=== PATIENT | male | born 1955 | race Caucasian/White ===

== ENCOUNTER → 2017-12-01 | Outpatient (CLI) | payer OTHER ==
[~2017-12-01] MED LIST: IOPAMIDOL 370 MG/ML 200 ML INFUS..BTL INJ ONE; SODIUM CHLORIDE 0.9% 50ML 50 ML ONE
[2017-12-01 08:06] LABS: BLOOD UREA NITROGEN 17 mg/dL (7-26); BUN/CREATININE RATIO 21 (6-25); CREATININE, SERUM 0.82 mg/dL (0.72-1.25); EST GLOMERULAR FILTRATION RATE > 60 ML/MIN (60-)
--- NOTE | 2017-12-01 11:38 | Diagnostic Imaging Report ---
EXAM: CT Abdomen and Pelvis WITHOUT and WITH contrast INDICATION: \[id number] \S\[id number] \S\RENAL MASS / GROSS HEMATURIA COMPARISON: None. TECHNIQUE: Abdomen and pelvis were scanned utilizing a multidetector helical scanner from the lung base to the pubic symphysis before and after administration of IV contrast. Coronal and sagittal reformations were obtained. Renal mass protocol was performed. Scan was performed pre-, nephrographic, and 4 minute delayed phase. IV CONTRAST: 100 mL of Isovue-370 ORAL CONTRAST: Water COMPLICATIONS: None RADIATION DOSE: Total DLP: 1966.28 mGy*cm Estimated effective dose: (DLP x 0.015 x size factor) mSv CTDIvol has been reviewed. It is below the limits set by the Radiation Protocol Committee (RPC). FINDINGS: LINES and TUBES: None. LOWER THORAX: 3 mm nonspecific subpleural right middle lobe nodule (series 3, image 1). Partially imaged coronary artery calcification. HEPATOBILIARY: Hepatic steatosis. 9 mm right hepatic lobe hypodensities too small to characterize (series 4, image 83). No biliary ductal dilation. GALLBLADDER: No radio-opaque stones or sludge. No wall thickening. SPLEEN: No splenomegaly. PANCREAS: No focal masses or ductal dilatation. ADRENALS: No adrenal nodules KIDNEYS/URETERS: Kidneys enhance symmetrically. No hydronephrosis. No renal mass. 3.3 cm left midpole partially exophytic cyst without evidence of enhancement. 4 mm right inferior pole calculus. There is also a punctate right midpole calculus. No left renal stone. Collecting System: Patent Renal Artery: Patent Renal Vein: Patent IVC: Patent GI TRACT: No abnormal distention, wall thickening, or evidence of bowel obstruction. Appendix is normal. PELVIC ORGANS/BLADDER: Filling defects within the posterior bladder wall on the left side measuring 2 x 2.4 cm (series 801, image 63) and midline measuring 1.9 x 1.5 cm (series 7, image 141). Prostate gland is enlarged measuring 5.4 cm in transverse diameter. LYMPH NODES: No lymphadenopathy. VESSELS: There is mild atherosclerotic disease in the aorta and major arterial branches. PERITONEUM / RETROPERITONEUM: No free air or fluid. BONES: Unremarkable. SOFT TISSUES: Small fat-containing left inguinal hernia. IMPRESSION: 1. No renal mass. 3.3 cm simple left renal midpole cyst. 2. Subcentimeter nonobstructive right renal calculi. 3. Filling defects within the posterior bladder, concerning for malignancy. Recommend correlation with cystoscopy. Signed by: Dr. Devyn Moreira MD on 12/01/2017 11:34 AM
== END ==
LOC: CT 07:25
PROVIDERS: ATTEND Urology
DX: N28.1 Cyst of kidney, acquired (principal); R31.0 Gross hematuria
CPT/HCPCS: 36415; 74178; 82565; 84520; Q9967

== ENCOUNTER → 2017-12-18 | Day surgery (SDC) | payer OTHER ==
[~2017-12-18] MED LIST changes: +ALLOPURINOL100 MG PO; +BELLADONNA/OPIUM 60 MG SUPP PR ONE; +CEFAZOLIN SOD 2 GM/D5W 50ML 50 ML IV ONE; +DEXAMETHASONE SOD PHOS INJ 4 MG/ML VIAL ONE; +FENTANYL CITRATE/PF 100MCG/2 ML INJ ONE; +GLYCOPYRROLATE INJ 1MG/ 5 ML SYR ONE; -IOPAMIDOL 370 MG/ML 200 ML INFUS..BTL INJ ONE; +IOPAMIDOL 610MG/1ML 300 MG/ML VIAL IV ONE; +LIDOCAINE HCL 2% LOCAL INJ 5 ML SDV VIAL INJ ONE; +LISINOPRIL2.5 MG PO; +MIDAZOLAM HCL 2 MG/2 ML VIAL ONE; +NEOSTIGMINE 5 MG/5ML SYR ONE; +ONDANSETRON HCL INJ 2 MG/ML VIAL ONE; +PROPOFOL IV EMULSION 10 MG/ML 20 ML VIAL ONE; +ROCURONIUM BROMIDE 10 MG/ML 5ML VIAL ONE; +SEVOFLURANE INHAL SOLN 250 ML PEN BTL ONE; -SODIUM CHLORIDE 0.9% 50ML 50 ML ONE
--- OUTSIDE RECORDS SUMMARY | 2017-12-18 10:27 | XMS REPORT ---
[facility] Address Unknown Phone Unavailable Care Team Providers Care Ply Splicer Name Role Phone MYESHA CANTU Unavailable Unavailable Problems This patient has no known problems. Allergies, Adverse Reactions, Alerts This patient has no known allergies or adverse reactions. Medications This patient has no known medications. Results Test Description Test Time Test Comments Text Results Atomic Results Result Comments CT ABDOMEN/PELVIS WOW [place] [address] Patient Name: TIFFANY SILVESTRE II MR #: [id number] : 1955 Age/Sex: 62/M Req #: [id number] Adm Physician: Ordered by: MYESHA CANTU MD Report #: [id number] Location: CT Room/Bed: Procedure: [id number] CT/CT ABDOMEN/PELVIS WOW Exam Date: 12/01/17 Exam Time: 0817 REPORT STATUS: Signed EXAM: CT Abdomen and Pelvis WITHOUT and WITH contrast INDICATION: COMPARISON : None. TECHNIQUE: Abdomen and pelvis were scanned utilizing a multidetector helical scanner from the lung base to the pubic symphysis before and after administration of IV contrast. Coronal and sagittal reformations were obtained. Renal mass protocol was performed. Scan was performed pre-, nephrographic, and 4 minute delayed phase. IV CONTRAST: 100 mL of Isovue-370 ORAL CONTRAST: Water COMPLICATIONS: None RADIATION DOSE: Total DLP: 1966.28 mGy*cm Estimated effective dose: (DLP x 0.015 x size factor) mSv CTDIvol has been reviewed. It is below the limits set by the Radiation Protocol Committee (RPC). FINDINGS: LINES and TUBES : None. LOWER THORAX: 3 mm nonspecific subpleural right middle lobe nodule (series 3, image 1). Partially imaged coronary artery calcification. HEPATOBILIARY: Hepatic steatosis. 9 mm right hepatic lobe hypodensities too small to characterize (series 4, image 83). No biliary ductal dilation. GALLBLADDER: No radio-opaque stones or sludge. No wall thickening. SPLEEN: No splenomegaly. PANCREAS: No focal masses or ductal dilatation. ADRENALS: No adrenal nodules KIDNEYS/URETERS: Kidneys enhance symmetrically. No hydronephrosis. No renal mass. 3.3 cm left midpole partially exophytic cyst without evidence of enhancement. 4 mm right inferior pole calculus. There is also a punctate right midpole calculus. No left renal stone. Collecting System: Patent Renal Artery: Patent Renal Vein: Patent IVC: Patent GI TRACT: No abnormal distention, wall thickening, or evidence of bowel obstruction. Appendix is normal. PELVIC ORGANS/BLADDER: Filling defects within the posterior bladder wall on the left side measuring 2 x 2.4 cm (series 801, image 63) and midline measuring 1.9 x 1.5 cm (series 7, image 141). Prostate gland is enlarged measuring 5.4 cm in transverse diameter. LYMPH NODES: No lymphadenopathy. VESSELS: There is mild atherosclerotic disease in the aorta and major arterial branches. PERITONEUM / RETROPERITONEUM: No free air or fluid. BONES: Unremarkable. SOFT TISSUES: Small fat-containing left inguinal hernia. IMPRESSION: 1. No renal mass. 3.3 cm simple left renal midpole cyst. 2. Subcentimeter nonobstructive right renal calculi. 3. Filling defects within the posterior bladder, concerning for malignancy. Recommend correlation with cystoscopy. Signed by: Dr. Devyn Moreira MD on 12/01/2017 11:34 AM Dictated By: DEVYN MOREIRA MD [id number] Transcribed By: ARLEEN on 12/01/17 0081 COPY TO: MYESHA CANTU MD
--- NOTE | 2017-12-19 13:47 | Operative Report ---
DATE OF PROCEDURE: December 18, 2017 SERVICE: Urology. PREOPERATIVE DIAGNOSES: 1. Large bladder tumor in the anterior left side of the bladder near the prostate. 2. Hematuria. 3. Renal cysts. POSTOPERATIVE DIAGNOSES: 1. Large bladder tumor in the anterior left side of the bladder near the prostate. 2. Hematuria. 3. Renal cysts. OPERATIONS PERFORMED: 1. Cystoscopy and bilateral retrograde pyelograms under fluoroscopic control. 2. Interpretation of x-ray, radiologist not present. 3. Supervision of fluoroscopy, radiologist not present. 4. Transurethral resection of large bladder tumor over 5 cm in size complicated due to the location of the tumor. MAINTENANCE SERVICE TECHNICIAN: None. ANESTHESIA: General. CLINICAL INDICATION NOTE: This is a 62-year-old patient presented with hematuria and found to have a large tumor in the bladder. The patient was brought for resection of the tumor and retrograde pyelograms. Procedure was discussed with the patient, potential benefits and complications discussed, explained and accepted. DESCRIPTION OF PROCEDURE AND FINDINGS: After proper level of anesthesia was achieved, the patient was placed in lithotomy position, prepped and draped in sterile fashion. Urethra inspected is unremarkable. The outlet is obstructed by enlarged prostate. Bladder is trabeculated. A large tumor is noticed on the left anterior aspect of the bladder near the prostate. Due to the location of the tumor, it would be difficult to reach it with the resectoscope. The cystoscope was then used to obtain bilateral retrograde pyelograms under fluoroscopic control. No intrinsic lesions were identified in the collecting system. Following this, the scope was removed. Resectoscope was inserted. A systematic resection of the tumor was done. Following the resection, a coagulation electrode was inserted through the resectoscope and coagulation was done. To aid on the coagulation of the base of the tumor, the cystoscope was inserted instead of the resectoscope, and with 70-degree lens and Colby bridge, it was possible to reach the base of the tumor that was carefully coagulated. Following this, a 24-Azerbaijani 30 mL Waldron catheter was inserted and connected to a collecting bag. Patient tolerated the procedure well, and was transferred in satisfactory condition to recovery room. He will be followed. Postop instruction given. Job#: [id number]
== END | disposition home or self-care (01) ==
LOC: OR 10:25
PROVIDERS: ATTEND Urology
DX: C67.3 Malignant neoplasm of anterior wall of bladder (principal); N28.1 Cyst of kidney, acquired; N40.1 Benign prostatic hyperplasia with lower urinary tract symptoms; N13.8 Other obstructive and reflux uropathy; N32.89 Other specified disorders of bladder; I10 Essential (primary) hypertension; R06.83 Snoring; I45.10 Unspecified right bundle-branch block; Z01.810 Encounter for preprocedural cardiovascular examination
CPT/HCPCS: 52005; 52240; 74420; 88305; 93005; J1100; J2001; J2250; J2405; Q9967

== ENCOUNTER → 2017-12-31 | Outpatient (CLI) | payer OTHER ==
[~2017-12-31] MED LIST changes: -BELLADONNA/OPIUM 60 MG SUPP PR ONE; -CEFAZOLIN SOD 2 GM/D5W 50ML 50 ML IV ONE; -DEXAMETHASONE SOD PHOS INJ 4 MG/ML VIAL ONE; -FENTANYL CITRATE/PF 100MCG/2 ML INJ ONE; -GLYCOPYRROLATE INJ 1MG/ 5 ML SYR ONE; -IOPAMIDOL 610MG/1ML 300 MG/ML VIAL IV ONE; -LIDOCAINE HCL 2% LOCAL INJ 5 ML SDV VIAL INJ ONE; -MIDAZOLAM HCL 2 MG/2 ML VIAL ONE; -NEOSTIGMINE 5 MG/5ML SYR ONE; -ONDANSETRON HCL INJ 2 MG/ML VIAL ONE; -PROPOFOL IV EMULSION 10 MG/ML 20 ML VIAL ONE; -ROCURONIUM BROMIDE 10 MG/ML 5ML VIAL ONE; -SEVOFLURANE INHAL SOLN 250 ML PEN BTL ONE
--- NOTE | 2017-12-31 09:35 | Diagnostic Imaging Report ---
PROCEDURE: X-RAY CHEST, TWO VIEWS COMPARISON: CT abdomen pelvis with and without contrast 12/01/2017. INDICATIONS: NEOPLASM OF BLADDER FINDINGS: The lungs are well-inflated. No focal airspace consolidation, pleural effusion, or pneumothorax. Mild tortuosity of the thoracic aorta with otherwise normal cardiomediastinal contour. No acute osseous abnormality. Probable posttraumatic deformity of the right anterior fifth rib. CONCLUSION: No acute cardiopulmonary abnormality. Dictated by: Jamey Hammond M.D. on 12/31/2017 at 9:36 Electronically approved by: Jamey Hammond M.D. on 12/31/2017 at 9:36
== END ==
LOC: RAD 08:57
PROVIDERS: ATTEND Urology
DX: C67.9 Malignant neoplasm of bladder, unspecified (principal)
CPT/HCPCS: 71046

== ENCOUNTER → 2018-01-15 | Day surgery (SDC) | payer OTHER ==
[~2018-01-15] MED LIST changes: +ACETAMINOPHEN 1000 MG/100 ML IV ONE; +BELLADONNA/OPIUM 30 MG SUPP RC ONE; +CEFAZOLIN SOD 1 GM VIAL ONE; +DEXAMETHASONE SOD PHOS INJ 4 MG/ML VIAL ONE; +FENTANYL CITRATE/PF 100MCG/2 ML INJ ONE; +IOPAMIDOL 610MG/1ML 300 MG/ML VIAL IV ONE; +KETOROLAC TROMETHAMINE 30 MG/ML VIAL ONE; +LIDOCAINE HCL 2% LOCAL INJ 5 ML SDV VIAL INJ ONE; +METHYLENE BLUE 1% INJ 10 ML VIAL INJ ONE; +MIDAZOLAM HCL 2 MG/2 ML VIAL ONE; +ONDANSETRON HCL INJ 2 MG/ML VIAL ONE; +PROPOFOL IV EMULSION 10 MG/ML 20 ML VIAL ONE; +SEVOFLURANE INHAL SOLN 250 ML PEN BTL ONE
--- NOTE | 2018-01-15 12:57 | Operative Report ---
DATE OF PROCEDURE: January 15, 2018 PREOPERATIVE DIAGNOSIS: 1. Transitional cell cancer of the bladder. 2. Hematuria. 3. Meatal stricture. POSTOPERATIVE DIAGNOSIS: 1. Transitional cell cancer of the bladder. 2. Hematuria. 3. Meatal stricture. OPERATION PERFORMED: 1. Cystoscopy and meatal dilation. 2. Right retrograde pyelograms under fluoroscopic control. 3. Attempt to do left retrograde pyelogram. 4. Resection of base of bladder tumor on the trigone, left side of the bladder outlet CHEF FRENCH: None. ANESTHESIA: General. CLINICAL INDICATION NOTE: This is a 62-year-old patient that found transitional cell cancer of the bladder near the bladder outlet. In the previous cystoscopy it was not possible to identify the left ureteral orifice, and the plan is to try to do it today. In addition, resection of the base of the tumor is planned. Of note, the accessibility to the bladder outlet is quite difficult for resection. Patient is aware of it. DESCRIPTION OF PROCEDURE AND FINDINGS: After a proper level of anesthesia was achieved, the patient was placed in lithotomy position, prepped and draped in a sterile fashion. The urethral meatus was dilated to 28-Azerbaijani. The scope was then inserted. Bladder outlet somewhat obstructed by large prostate. Bladder was trabeculated. The base of the bladder and the trigone on the right side was unremarkable. On the left side there is irregular area as well as in the bladder outlet. Difficult to identify clearly whether this is regrowth of tumor. Following this, right retrograde pyelograms were done, appeared to be unremarkable. Methylene blue was given IV with 10 mg of Lasix, and even after 25 minutes blue dye could not be seen though the function of the kidney was normal. At that point, the scope was removed and the resectoscope was inserted. Systematic resection of all the area of the tumor was present earlier with a looped resection. After completing of the resection, any visible bleeding points were carefully coagulated and all the specimens were evacuated and sent to pathology. Even at that point blue dye was not seen coming from the right orifice and obviously not from the left. Following this, a B and O suppository was inserted, and a 24-Azerbaijani 3-way Waldron catheter was placed and connected to irrigation with water. Patient tolerated procedure well, was transferred in satisfactory condition to recovery room. He will be followed. Job#: [id number] EV
== END | disposition home or self-care (01) ==
LOC: OR 07:56
PROVIDERS: ATTEND Urology
DX: C67.0 Malignant neoplasm of trigone of bladder (principal); N35.9 Urethral stricture, unspecified; N40.1 Benign prostatic hyperplasia with lower urinary tract symptoms; N13.8 Other obstructive and reflux uropathy; N32.89 Other specified disorders of bladder; I45.10 Unspecified right bundle-branch block; I10 Essential (primary) hypertension; E66.9 Obesity, unspecified
CPT/HCPCS: 52005; 52235; 74420; 88305; C1758; J0690; J1100; J1885; J2001; J2250; J2405; Q9967; 88304